=== PATIENT | female | born 1980 | race Two or more races ===

== ENCOUNTER 2016-11-25 22:04 | Observation (INO) | payer OTHER ==
--- NOTE | ~2016-11-25 | HP ---
Unit #: [id number] #: [id number] Patient: EMERY ANGLIN [id number] [address] [place], [place] [address] [id number] MR#: [id number] NAME: EMERY ANGLIN. ROOM: 240 Age: 36 Sex: F Admission Date: 11/26/2016 : 1980 Attending Physician: Romina Casillas M.D. Primary Care Physician: No Primary Care Physician HISTORY AND PHYSICAL CHIEF COMPLAINT Symptomatic microcytic anemia secondary to menorrhagia. HISTORY This pleasant, 36-year-old, G4, P2, AB2 female is admitted for menorrhagia. Unfortunately, all the [facility] interpreters are busy. Family speaks fairly good Albanian and I was able to get a good history through the family interpreting and, also, the ER physician who did use the phone batching operator. Patient has menorrhagia and has been bleeding for the past three months. Notes lower abdominal pain, increasing dizziness, and lightheadedness. She, therefore, presented to this emergency department late last evening where her hemoglobin was 6.8 with a hematocrit of 21.3, down from a hematocrit of 32.7, December 2014. Pelvic ultrasound was negative and pelvic examination was also performed by the emergency room physician. She did discuss the care of this patient with [facility] who had no beds. They suggested that the patient be transfused as her menorrhagia is chronic and that she be placed on a tapering dose of Lo Ovral, which the emergency room physician has kindly written for me. Patient plans to follow up with [facility] as an outpatient. PAST MEDICAL HISTORY Kidney stone. ALLERGIES None. HOME MEDICATIONS None. FAMILY HISTORY Noncontributory. SOCIAL HISTORY The patient is originally from [facility]. She lives with her and children. She is a lifelong nonsmoker and does not drink alcohol. REVIEW OF SYSTEMS Difficult to obtain due to language barrier. PHYSICAL EXAMINATION GENERAL APPEARANCE: Pleasant, mildly obese, 36-year-old female currently in no acute distress. VITAL SIGNS: Temperature 97.6, pulse 96, respirations 16, blood pressure 126/72, and O2 saturation is 100% on room air. Unit #: [id number] #: [id number] Patient: EMERY ANGLIN HEENT: Eyes: PERRLA. Extraocular muscles are intact. Pharynx is benign. NECK: Supple without adenopathy or thyromegaly. CHEST: Clear. CARDIAC: Normal S1 and S2 without S3, S4, or murmur. ABDOMEN: Bowels sounds are present. No hepatosplenomegaly, tenderness, or masses. EXTREMITIES: Without C, C, or E. NEUROLOGIC: Patient is awake, alert, and oriented. Cranial nerves are intact. Equal strength throughout. DIAGNOSTIC STUDIES ADMISSION LABORATORY: Hemoglobin of 6.8 with hematocrit of 21.3, down from 32.7 two years ago. SMA-12 is normal. Urinalysis is negative. IMAGING: Pelvic ultrasound is negative. ASSESSMENT Symptomatic microcytic anemia secondary to menorrhagia for the past three months. PLANS 1. Transfuse two units of packed red blood cells. 2. Check iron stores and thyroid function test. 3. Prescription is on the chart for Lo Ovral taper at the time of discharge. 4. Case was discussed with [facility] who plans to see the patient after discharge. Their phone number is [phone]. 5. Will check CBC after transfusion. Dictated by Romina Casillas M.D. AML/pc TD: 11/26/2016 05:37 JOB #: [id number] HISTORY AND PHYSICAL Page 1 of 1 X Romina Casillas MD X HISTORY AND PHYSICAL
--- NOTE | ~2016-11-25 | US98 ---
[facility] A Service of [facility] RADIOLOGY TEXT RESULTS PATIENT: EMERY ANGLIN LOCATION: [facility] : [birth year] UNIT #: [id number] AGE: [address]: Dominik Hunter MD SEX: F ORDER DR: [id number] [facility] [address]. [place], [place] [address] [id number] MR#: [id number] Acc #: [id number] NAME: EMERY ANGLIN. : 1980 SEX: F STUDY DATE/TIME: 11/26/2016 1:09 UNIT: [facility] ROOM: 240 STUDY DESCRIPTION: US Pelvic Non-OB Complete Attending Physician: Romina Casillas M.D. Ordering Physician: Malorie Hankins M.D. Primary Care Physician: Primary Care Physician No MEDICAL IMAGING REPORT This report is preliminary unless electronic signature is present EXAM Pelvic ultrasound INDICATION Vaginal bleeding. Torsion. 3-month duration. COMPARISON Pelvic ultrasound 09/13/2014. FINDINGS The uterus is anteverted measuring 8.5 x 4.1 x 5.2 cm. Echogenicity and echotexture of the endometrium is within normal limits. The endometrial stripe measures 1.2 cm in thickness. The right ovary measures 2.3 x 3.5 x 2.3 cm. The left ovary measures 2.6 x 3 x 3.3 cm. There is a small follicular cyst in the left ovary. No adnexal mass or free pelvic fluid. IMPRESSION Negative pelvic ultrasound. Dictated by... Quincy Wright M.D. THIS IS AN ELECTRONICALLY VERIFIED REPORT Quincy Wright M.D. at 11/29/2016 2:14 PM ALYSSA/rajiv TD: 11/26/2016 07:49 JOB #: [id number] [facility] A Service of [facility] RADIOLOGY TEXT RESULTS PATIENT: EMERY ANGLIN LOCATION: [facility] : [birth year] UNIT #: [id number] AGE: [address]: Dominik Hunter MD SEX: F ORDER DR: MEDICAL IMAGING REPORT Page 1 of 1 COPY
[~2016-11-25 22:04] MED LIST: NO MEDICATIONS
[2016-11-26 00:55] LABS: URINE SOURCE CLEAN CATCH
[2016-11-26 01:08] LABS: BASOPHIL% 0.6 % (0-2.5); EOSINOPHIL# 0.2 X10e3 (0-0.7); EOSINOPHIL% 2.2 % (0.0-7.0); HEMATOCRIT 21.3 % (35.0-45.0); LYMPHOCYTE% 41.2 % (17.0-45.0); MEAN CELL VOLUME 78.2 FL (83-96); MEAN CORPUSCULAR HEMOGLOBIN 24.8 PG (28-34); MEAN CORPUSCULAR HGB CONC 31.7 g/dL (30-36); MEAN PLATELET VOLUME 10.5 FL (6.5-11.5); MONOCYTE# 0.4 X10e3 (0-1.0); MONOCYTE% 4.9 % (3.0-12.0); NEUTROPHIL# 3.8 X10e3 (1.5-7.1); NEUTROPHIL% 51.1 % (40-75); PLATELET COUNT 195 X10e3 (140-420); RED BLOOD COUNT 2.73 X10e (3.90-5.30); RED CELL DISTRIBUTION WIDTH 14.8 % (11.0-15.5); WHITE BLOOD COUNT 7.3 X10e3 (4.0-10.5)
[2016-11-26 01:09] LABS: URINE APPEARANCE CLEAR; URINE BILIRUBIN NEG (NEG); URINE BLOOD NEG (NEG); URINE COLOR YELLOW; URINE GLUCOSE NEG (NEG); URINE KETONE NEG (NEG); URINE LEUKOCYTE ESTERASE NEG (NEG); URINE NITRATE NEG (NEG); URINE PH 6.5 (5-8); URINE PROTEIN NEG (NEG); URINE SPECIFIC GRAVITY 1.015 (1.003-1.035); URINE UROBILINOGEN 0.2 MG/DL (NEG)
[2016-11-26 01:10] LABS: DIFF IND YES; HEMOGLOBIN 6.8 gm/dL (12.0-16.0)
[2016-11-26 01:17] LABS: CULTURE INDICATED? NO
[2016-11-26 01:34] LABS: MICROCYTOSIS SL; PLATELET ESTIMATE DECREASED (NORMAL)
[2016-11-26 01:36] LABS: ALBUMIN SERUM 3.6 g/dL (3.5-5.0); BILIRUBIN,TOTAL 0.4 mg/dL (0.2-2.0); BUN/CREATININE RATIO 12.85; CALCIUM SERUM 8.4 mg/dL (8.4-10.2); CREATININE SERUM 0.7 mg/dL (0.6-1.4); GLOM FILT RATE Estimated 111.5 mL/min (>60); POTASSIUM 3.5 mmol/L (3.5-5.1); PROTEIN TOTAL SERUM 6.8 g/dL (6.0-8.3)
[2016-11-26 01:38] LABS: BILIRUBIN, DIRECT 0.1 mg/dL (0.0-0.2); BILIRUBIN,INDIRECT 0.3 mg/dL (0.0-0.9)
[2016-11-26 03:45] LABS: IRON SERUM 12 ug/dL (28-170); TOTAL IRON BINDING CAPACITY 482 ug/dL (269-535); TRANSFERRIN 345 mg/dL (192-382); TRANSFERRIN SATURATION 2 % (20-50)
[2016-11-26] MEDS ORDERED: NO MEDICATIONS (05:56)
[2016-11-26 11:56] LABS: HEMATOCRIT 27.1 % (35.0-45.0); MEAN CELL VOLUME 80.5 FL (83-96); MEAN CORPUSCULAR HEMOGLOBIN 26.8 PG (28-34); MEAN CORPUSCULAR HGB CONC 33.3 g/dL (30-36); MEAN PLATELET VOLUME 9.8 FL (6.5-11.5); RED BLOOD COUNT 3.37 X10e (3.90-5.30); RED CELL DISTRIBUTION WIDTH 15.6 % (11.0-15.5); WHITE BLOOD COUNT 6.1 X10e3 (4.0-10.5)
[2016-11-26 12:33] LABS: BUN/CREATININE RATIO 12.85; CALCIUM SERUM 8.2 mg/dL (8.4-10.2); CREATININE SERUM 0.7 mg/dL (0.6-1.4); GLOM FILT RATE Estimated 111.5 mL/min (>60); POTASSIUM 3.7 mmol/L (3.5-5.1)
[2016-11-26 12:53] LABS: THYROID STIMULATING HORMONE 3.26 uIU/ml (0.34-5.60)
[2016-11-26 13:00] LABS: FREE THYROXIN (T4) 0.63 ng/dL (0.58-1.64)
[2016-11-26] MEDS ORDERED: FERROUS GLUCON324 M1 PO (13:44)
[2016-11-26] MEDS ORDERED: LOOVRAL PO (13:47)
[2016-11-28 08:45] LABS: CHLAMYDIA TRACH Not Detected (Not Detected); N GONOR Not Detected (Not Detected)
== END 2016-11-26 16:55 | disposition home or self-care (01) ==
LOC: CED 22:04 → CEDOF 11-26 03:00 → C2A 11-26 03:00
PROVIDERS: Internal Medicine; Student in an Organized Health Care Education/Training Program
DX: N92.0 Excessive and frequent menstruation with regular cycle (principal); D50.0 Iron deficiency anemia secondary to blood loss (chronic)
CPT/HCPCS: 36415; 36430; 51701; 76830; 76856; 80048; 80076; 81003; 82728; 83540; 83550; 84439; 84443; 84702; 85025; 85027; 86850; 86900; 86901; 86923; 87491; 87591; 87808; 87905; 96361; 96374; 99285; G0378; J2405; P9016

== ENCOUNTER 2016-12-18 07:45 | Emergency (ER) | payer OTHER ==
[~2016-12-18 07:45] MED LIST changes: +FERROUS GLUCON324 M1 PO; +LOOVRAL PO
[2016-12-18 09:16] LABS: BASOPHIL# 0.1 X10e3 (0-0.3); BASOPHIL% 0.5 % (0-2.5); EOSINOPHIL# 0.1 X10e3 (0-0.7); EOSINOPHIL% 0.5 % (0.0-7.0); HEMOGLOBIN 10.6 gm/dL (12.0-16.0); LYMPHOCYTE# 1.7 X10e3 (1.0-3.5); LYMPHOCYTE% 16.7 % (17.0-45.0); MEAN CORPUSCULAR HEMOGLOBIN 24.3 PG (28-34); MONOCYTE# 0.4 X10e3 (0-1.0); MONOCYTE% 3.4 % (3.0-12.0); NEUTROPHIL# 8.2 X10e3 (1.5-7.1); NEUTROPHIL% 78.9 % (40-75); PLATELET COUNT 210 X10e3 (140-420); RED BLOOD COUNT 4.35 X10e (3.90-5.30); RED CELL DISTRIBUTION WIDTH 16.5 % (11.0-15.5); WHITE BLOOD COUNT 10.4 X10e3 (4.0-10.5)
[2016-12-18 09:18] LABS: URINE SOURCE CLEAN CATCH
[2016-12-18 09:19] LABS: DIFF IND NO
[2016-12-18 09:26] LABS: URINE APPEARANCE HAZY; URINE BILIRUBIN NEG (NEG); URINE BLOOD 4+ (NEG); URINE COLOR RED; URINE GLUCOSE NORM (NORM); URINE KETONE NEG (NEG); URINE LEUKOCYTE ESTERASE 2+ (NEG); URINE NITRATE NEG (NEG); URINE PROTEIN 1+ (NEG); URINE SPECIFIC GRAVITY 1.015 (1.003-1.035); URINE UROBILINOGEN NORM (NORM)
[2016-12-18 09:56] LABS: URBCS1 AUWI INNUM /[HPF] (0-2); URINE SQUAMOUS EPITHELIAL CELL OCCAS /[HPF]
[2016-12-18 09:57] LABS: CULTURE INDICATED? NO
[2016-12-18 09:59] LABS: ALBUMIN SERUM 3.6 g/dL (3.5-5.0); ALKALINE PHOSPHATASE 58 U/L (32-92); ALT (SGPT) 17 U/L (10-40); AST (SGOT) 18 U/L (10-42); BILIRUBIN, DIRECT <0.1 mg/dL (0.0-0.2); BILIRUBIN,INDIRECT 0.3 mg/dL (0.0-0.9); BILIRUBIN,TOTAL 0.4 mg/dL (0.2-2.0); BLOOD UREA NITROGEN 12 mg/dL (9-23); CALCIUM SERUM 8.5 mg/dL (8.4-10.2); CARBON DIOXIDE 22 mmol/L (22-31); CHLORIDE 108 mmol/L (100-111); CREATININE SERUM 0.8 mg/dL (0.6-1.4); GLOM FILT RATE Estimated 94.9 mL/min (>60); GLUCOSE FASTING 103 mg/dL (70-110); POTASSIUM 3.7 mmol/L (3.5-5.1); PROTEIN TOTAL SERUM 7.1 g/dL (6.0-8.3); SODIUM 137 mmol/L (135-145)
== END 2016-12-18 11:00 | disposition home or self-care (01) ==
LOC: CED 07:45
PROVIDERS: Nurse Practitioner
DX: N93.8 Other specified abnormal uterine and vaginal bleeding (principal); D64.9 Anemia, unspecified; Z79.899 Other long term (current) drug therapy
CPT/HCPCS: 36415; 80048; 80076; 81003; 84703; 85025; 96360; 99284